=== PATIENT | male | born 1965 ===

== ENCOUNTER 2019-02-12 08:58 | Day surgery (SDC) | payer BC ==
[2019-02-05 10:15] VITALS: BMI 25.1
[~2019-02-12 08:58] MED LIST: Carbachol 0.01% IO ONE; Chondroitin/Hyaluronate Opth Syringe KIT (0.55 ml-0.5 ml) IO ONE; Ciprofloxacin 0.3% OPTH SOLN OS SCH; Hyaluronidase Human, Recombi 150 U/ML VIAL ONE; Ketorolac Tromethamine 0.5% Opth Soln (3 ml) OS SCH; Lactated Ringer's 500 ML IV ONE; Lidocaine 2% MPF (5 ml) Inj ONE; Phenylephrine 2.5% Opht Soln OS SCH; Povidone Iodine Ophthalmic 5% Soln ONE; Tetracaine 0.5% Ophth (OR ONLY) ONE; Tobramycin/Dexamethasone OPHT OINT ONE; Tropicamide 1% Opht SOLUTION OS SCH; acetaZOLAMIDE 500 mg SR Cap PO ONE
[2019-02-12] MEDS ORDERED: Lactated Ringer's 1,000 ML IV ONE (10:31)
[2019-02-12] MEDS ORDERED: Midazolam 2 MG/2 ML VIAL ONE (12:04)
[2019-02-12] MEDS ORDERED: Chondroitin/Hyaluronate 40 mg/ml-30 mg/ml Ophth Syringe (0.5 ml) IO ONE (12:25)
[2019-02-12 12:58] VITALS: BP 120/70; PULSE 77; RESP 18; TEMP 97; O2SAT 100
[2019-02-12] MEDS ORDERED: acetaZOLAMIDE 500 mg SR Cap PO ONE (13:00)
--- NOTE | 2019-02-12 22:32 | OP ---
PROCEDURE DATE: 02/12/2019 PREOPERATIVE DIAGNOSIS: Hypermature cataract, right eye. POSTOPERATIVE DIAGNOSIS: Hypermature cataract, right eye. OPERATIVE PROCEDURE: Phacoemulsification, right eye with insertion of posterior chamber lens implant with utilization of capsular dye. SURGEON: Mario Coon MD CO-SURGEON: Fabiano Okeefe MD ANESTHESIA: Local with IV sedation. PROCEDURE: The patient was brought into the operating room and placed in supine position, prepped and draped in the usual fashion for ophthalmic surgery. Lid speculum inserted, lids and exposing globe. On inspection, there was noted to be a hypermature cataract. A side-port incision was made superiorly and inferiorly with disposable sharp blade. An air bubble was injected in the anterior chamber followed by capsular dye to stain the anterior capsule. The dye was irrigated out of the anterior chamber with balanced salt solution. The anterior chamber was deepened with Viscoat. A near clear corneal incision was made temporally with a 2.75-mm keratome. Capsulorrhexis was performed with Utrata forceps. Hydrodissection was carried out with balanced salt solution. The nucleus was then phacoemulsified. Remaining cortical fragments were aspirated with a split irrigation and aspiration system. The capsular sac was filled with Provisc. Posterior chamber lens was injected into the sac and rotated into horizontal position. Provisc was aspirated out of the anterior chamber. Pupil was constricted with Miochol. The wound was hydrated with balanced salt solution and found to be watertight. Topical Timoptic, Betadine, TobraDex ointment, and pressure patch were applied. The patient tolerated the procedure well. Mario Coon MD
== END 2019-02-12 13:16 | disposition home or self-care (01) ==
LOC: C.SDS 08:58
PROVIDERS: ATTEND Ophthalmology
DX: H25.12 Age-related nuclear cataract, left eye (principal)
CPT/HCPCS: 66984; J2250; J3010; J3470; J7120; V2632